=== PATIENT | male | born 1950 | race Caucasian/White ===

== ENCOUNTER 2019-12-03 10:56 | Inpatient (IN) ==
[2019-12-03] MEDS ORDERED: ZOFRAN IV ONE (11:11)
[2019-12-03] MEDS ORDERED: NS 1,000 ML IV ONE ×2 (11:11→13:06)
[2019-12-03] MEDS ORDERED: MORPHINE IV ONE (11:11)
--- NOTE | 2019-12-03 11:16 | PROVIDER DOCUMENTATION ---
HPI-Abdominal Pain/GI Problem - General Chief Complaint: Nausea/Vomiting Stated Complaint: N/V Time Seen by Provider: 12/03/19 11:02 Source: patient Allergies/Adverse Reactions: Patient Allergies Allergy/AdvReac Type Severity Reaction Status Date / Time No Known Allergies Allergy Verified 12/03/19 11:04 Home Medications: Home Medication List Medication Instructions Recorded Confirmed Last Taken Type Doxazosin [Cardura] 4 mg PO DAILY 04/03/13 10/28/13 10/28/13 09:00 History 4 LISINOpril [Prinivil] mg PO DAILY 04/03/13 10/28/13 10/28/13 History 10 Levothyroxine [Synthroid] 25 microgm PO DAILY 04/03/13 10/28/13 10/28/13 08:00 History 25 Metoprolol Succinate E.r. [Toprol 100 mg PO DAILY 04/03/13 10/28/13 10/28/13 09:00 History Xl] 100 PRAVAstatin [Pravachol] 40 mg PO QHS 04/03/13 10/28/13 10/28/13 09:00 History 40 Trazodone [Desyrel] 50 mg PO QHS 04/03/13 10/28/13 10/28/13 09:00 History 50 - History of Present Illness-ABD Nature of Presenting Problems: Patient is a 69 yom who c/o n/v x 2 days. Has had 1 loose stool since onset. Also c/o generalized abdominal pain, more in periumbilical region. Has also had bilateral leg cramping. Denies fever or any other complaints. Review of Systems - Adult - REVIEW OF SYSTEMS - ADULT Constitutional: reports: no symptoms reported. denies: fever Eyes: reports: no symptoms reported Ears, Nose, Mouth & Throat: reports: no symptoms reported Cardiovascular: reports: no symptoms reported Respiratory: reports: no symptoms reported Gastrointestinal: reports: see HPI Genitourinary: reports: no symptoms reported Musculoskeletal: reports: see HPI Integumentary: reports: no symptoms reported Neurological: reports: no symptoms reported Psychiatric: reports: no symptoms reported Endocrine: reports: no symptoms reported Hematologic/Lymphatic: reports: no symptoms reported Allergic/Immunologic: reports: no symptoms reported All Other Systems: Reviewed and Negative Past History - Adult - PAST MEDICAL HISTORY-ADULT Review of Records: reports: Nursing Assessment Review, Medications Reviewed, Social history reviewed & non-contributory. Major Childhood Illnesses: reports: denies history Cardiovascular: reports: HTN Respiratory: reports: denies history Gastrointestinal: reports: denies history Obstetrical/Gynecological: reports: denies history Genitourinary: reports: retention, other (bladder stones) Musculoskeletal: reports: denies history Neurological: reports: denies history Psychiatric: reports: denies history Endocrine/Immune: reports: denies history Other Conditions: reports: denies history - PRIOR SURGERIES/PROCEDURES Surgical/Procedure History: reports: reviewed, not pertinent - FAMILY HISTORY Family History: reviewed, not pertinent - SOCIAL HISTORY Smoking: non-smoker Physical Exam-General - PHYSICAL EXAM-ADULT Initial Vital Signs Reviewed: Yes - CONSTITUTIONAL General Appearance: alert, no apparent distress. negative: lethargic, slow to respond - EYES Eyes: PERRL/EOMI - HEAD, EARS, NOSE, MOUTH & THROAT HENMT: normocephalic/atraumatic - NECK Neck: full range of motion, supple, normal inspection - RESPIRATORY Respiratory: chest non-tender, lungs clear, normal breath sounds, no pleuratic chest pain, no respiratory distress, no accessory muscle use - CARDIOVASCULAR Cardiovascular: normal peripheral pulses, regular rate, rhythm, no gallop, no murmur - GASTROINTESTINAL (ABDOMEN) Abdominal Exam: abnormal bowel sounds (hypoactive), distended, tenderness (diffuse, more in left periumbilical region). negative: guarding - MUSCULOSKELETAL Back Exam: normal inspection Extremity: normal range of motion, non-tender, normal inspection - SKIN Integumentary: normal color, warm/dry. negative: cyanosis, diaphoresis, jaundice, mottled, pallor - NEUROLOGIC Neurologic: grossly normal, no motor/sensory deficits - PSYCHIATRIC Psych/Mental Status: normal mood/affect, normal thought content, normal thought process, oriented x 3 Progress - PLAN OF CARE/RESULTS Progress/Plan/Lab Results: Vital Signs - 8 hr 12/03/19 11:01 Temperature 98.2 F Pulse Rate 128 H Respiratory Rate 18 Blood Pressure 107/73 O2 Sat by Pulse Oximetry 96 Orders Category Date Time Status NEWS Score 2-4:Order NEWS Lactate Series NOW Care 12/03/19 11:04 Active Nursing- Obtain EKG ONCE Care 12/03/19 11:11 Active Saline Loc DIRECTED Care 12/03/19 11:04 Active NPO Diet 12/03/19 11:[address] ABD/PELVIS W/IV CONT ONLY [CT] Stat Exams 12/03/19 11:11 Ordered AMYLASE [CHEM] Stat Lab 12/03/19 11:04 Ordered BLOOD CULTURE [BLDCUL] Stat Lab 12/03/19 11:11 Uncollected CBC WITH ELECTRONIC DIFF [HEME] Stat Lab 12/03/19 11:04 Ordered CK PROFILE [SP CHEM] Stat Lab 12/03/19 11:11 Ordered COMPREHENSIVE METABOLIC PANEL [CHEM] Stat Lab 12/03/19 11:04 Uncollected LACTATE, PLASMA [CHEM] Q3H Lab 12/03/19 11:15 Uncollected LACTATE, PLASMA [CHEM] Q3H Lab 12/03/19 14:15 Uncollected LACTATE, PLASMA [CHEM] Q3H Lab 12/03/19 17:15 Uncollected LIPASE [CHEM] Stat Lab 12/03/19 11:04 Uncollected TROPONIN T HIGH SENSITIVITY Stat Lab 12/03/19 11:11 Uncollected URINALYSIS W/POSS RFLX CULT [URINALYSIS] Stat Lab 12/03/19 11:04 Uncollected Morphine Med 12/03/19 11:11 Once 2 mg IV NOW ONE Ns 1000 ml IV Bolus X1 Med 12/03/19 11:11 Ordered 0.9% Sodium Chloride Inj [Ns] 1,000 ml IV 999 mls/hr Ondansetron [Zofran] Med 12/03/19 11:11 Once 4 mg IV NOW ONE EKG [EKG] Stat Ther 12/03/19 11:11 Ordered Result Diagrams: 12/03/19 11:12 12/03/19 11:12 - REASSESSMENT Reassessment #1 Time Reassessed: 13:00 Status: other (Pt aware of results and in agreement with admission plan and hewitt sfer to DG.) - EKG 1 Time of EKG reading by physician:: 12:11 EKG Read and Signed by:: Jayant Castaneda EKG Interpretation (*Must complete 3 of following elements*): Abnormal Rate: 107 Rhythm: sinus tachycardia with fusion complexes ST Wave: normal - CT/MRI 1 CT Study: Abdomen, Pelvis ([facility] - [address] , [address], [place] [address] [place] [address] Department of Imaging Patient: ISABELA FOYADM Date: 12/03/19#: [id number] : 8ADM Status: REG ERAcct#: [id number] Age/Sex: 69/MRoom/Bed: Loc: P.ED Ordering Physician: Olga Shelton Family Physician: Pankaj Thorpe MD Reason for Procedure: periumbilical pain/tenderness, n/v Signed EXAM: CT ABDOMEN/PELVIS W/O CONTRAST 12/03/2019 HISTORY: periumbilical pain/tenderness, n/v TECHNIQUE: This exam was performed using automated exposure control, adjustment of mA or kV according to patient size, and/or use of iterative reconstruction technique. COMMENT: The current study is compared with the previous examination of 03/22/2013. There are some platelike opacities in both lung bases similar in appearance to the previous study and presumably representing fibrotic scars. There are no apparent gallstones. There is a cyst in the posterior right hepatic lobe which was also present previously although it is slightly larger than it was on the previous exam. There is a fairly large cyst in the upper pole of the left kidney measuring 5.4 cm in diameter. This was also present previously. There is no evidence of nephrolithiasis or hydronephrosis. There is a fair amount of fluid in the gastric fundus. There is dilatation of the small bowel with air-fluid levels which was not the case on the previous study. The appendix is normal in appearance and the distal ileum is normal in caliber. The colon is decompressed. The transitional zone appears to be in the right pelvis. There are some div erticula present in the sigmoid colon without evidence of acute diverticulitis. There is a small amount of free fluid in the pelvis. The urinary bladder is not distended. There is a small fat-containing inguinal hernia on the left. There are degenerative disc changes in the lumbar spine and curvature of the lumbar spine with convexity to the left. IMPRESSION: Small bowel obstruction. No evidence of nephrolithiasis or hydronephrosis. Electronically signed by Andrea Westbrook 12/03/2019 12:37 PM 12/03/19 1237 Interpreting Physician: Andrea Westbrook MD Dictated Date/Time: 12/03/19 1232 cc: Olga Shelton; Pankaj Thorpe MD) - CONSULTS/PCP/HOSPITALIST Notification #1 *Consult/PCP/Hospitalist*: Dr. Figueroa Time Discussed: 12:51 Reason/Comments: SBO Consult Disposition: Admit (to HPS at [facility], Dr. Figueroa requests that he is consulted when pt is at .) #2 Consult: Dr. Leahy Time Discussed: 13:00 Reason/Comments: admission- SBO, renal insufficiency Consult Disposition: Admit (Dr. Leahy to admit to himself, will see pt when he gets to .) Departure - Departure Date of Disposition Decision: 12/03/19 Time of Disposition Decision: 12:40 DIAGNOSIS: SBO (small bowel obstruction), Renal insufficiency, Hernia, Hepatic cyst, Renal cyst, Hyperkalemia Nausea and vomiting Qualifiers: Vomiting type: unspecified Vomiting Intractability: non-intractable Qualified Code(s): R11.2 - Nausea with vomiting, unspecified Abdominal pain Qualifiers: Abdominal location: unspecified location Qualified Code(s): R10.9 - Unspecified abdominal pain Disposition: ADMITTED INPATIENT 09 Certified Medical Emergency: Emergent Condition: Stable Referrals and Follow-Ups: Pankaj Thorpe MD [Primary Care Provider] - - Critical Care Note This patient required my direct & personal management of CC.: No Attestation - Physician/ CARMEN Attestation Patient care was provided by Advanced Practice Provider:: Yes Advanced Practice Provider:: Olga Shelton Advanced Practice Provider documentation review:: The Mid-level provider documentation, treatment plan and medical decision making was reviewed by the physician who agrees with all treatment and medical decision making by the P. The physician spent face to face time with patient:: No Advanced Practice Provider documentation review:: Supervising physician onsite and consulted in the evaluation and care of this patient. The physician did not have a face to face encounter with the patient.
[2019-12-03 11:35] LABS: BASO# 0.02 X1000 (0.0-0.2); BASO% 0.2 % (0.0-0.8); EOS# 0.03 X1000 (0.0-0.7); EOS% 0.3 % (0.0-10.0); HEMOGLOBIN 13.4 g/dL (14.0-18.0); IMM GRAN# 0.03 X1000 (0.0-0.04); IMM GRAN% 0.3 % (0.0-0.5); LYMPH# 1.04 X1000 (1.2-3.4); LYMPH% 9.9 % (20.5-51.1); MCH 25.4 PG (27-31); MCHC 31.9 g/dL (33-37); MCV 79.7 FL (81-99); MONO# 1.45 X1000 (0.11-0.59); MONO% 13.8 % (1.7-9.3); MPV 10.6 FL (7.4-10.4); NEUT# 7.97 X1000 (1.4-6.5); NEUT% 75.5 % (42.2-75.2); PLT 588 X1000 (130-400); RBC 5.27 XMIL (4.7-6.1); RDW 16.2 % (11.5-14.5); WBC 10.54 X1000 (4.8-10.8)
[2019-12-03 11:53] LABS: ALBUMIN 4.5 g/dL (3.5-5.0); CALCIUM 9.4 mg/dL (8.8-10.2); CREATININE 2.9 mg/dL (0.7-1.2); POTASSIUM 5.2 mmol/L (3.5-5.1); TOTAL BILIRUBIN 0.6 mg/dL (0.20-1.00); TOTAL PROTEIN 8.6 g/dL (6.3-8.3)
--- NOTE | 2019-12-03 12:39 | Diag Imaging Result Doc PS360 ---
EXAM: CT ABDOMEN/PELVIS W/O CONTRAST 12/03/2019 HISTORY: periumbilical pain/tenderness, n/v TECHNIQUE: This exam was performed using automated exposure control, adjustment of mA or kV according to patient size, and/or use of iterative reconstruction technique. COMMENT: The current study is compared with the previous examination of 03/22/2013. There are some platelike opacities in both lung bases similar in appearance to the previous study and presumably representing fibrotic scars. There are no apparent gallstones. There is a cyst in the posterior right hepatic lobe which was also present previously although it is slightly larger than it was on the previous exam. There is a fairly large cyst in the upper pole of the left kidney measuring 5.4 cm in diameter. This was also present previously. There is no evidence of nephrolithiasis or hydronephrosis. There is a fair amount of fluid in the gastric fundus. There is dilatation of the small bowel with air-fluid levels which was not the case on the previous study. The appendix is normal in appearance and the distal ileum is normal in caliber. The colon is decompressed. The transitional zone appears to be in the right pelvis. There are some diverticula present in the sigmoid colon without evidence of acute diverticulitis. There is a small amount of free fluid in the pelvis. The urinary bladder is not distended. There is a small fat-containing inguinal hernia on the left. There are degenerative disc changes in the lumbar spine and curvature of the lumbar spine with convexity to the left. IMPRESSION: Small bowel obstruction. No evidence of nephrolithiasis or hydronephrosis. Electronically signed by Andrea Westbrook 12/03/2019 12:37 PM
--- NOTE | 2019-12-03 12:46 | EKG Report ---
Test Performed on : 12/03/2019 12:09:08 PM Test Reason : n/v Blood Pressure : / mmHG Vent. Rate : 107 BPM Atrial Rate : 107 BPM P-R Int : 136 ms QRS Dur : 076 ms QT Int : 320 ms P-R-T Axes : 049 042 075 degrees QTc Int : 427 ms Sinus tachycardia. with fusion complexes Otherwise normal ECG When compared with ECG of 03-APR-2013 08:51, fusion complexes are now present Vent. rate has increased BY 56 BPM Unconfirmed Result
[2019-12-03] MEDS ORDERED: ZOSYN 2.25 GM in NS 50 ML IV ONE (13:01)
--- NOTE | 2019-12-03 14:24 | Diag Imaging Result Doc PS360 ---
EXAM: CHEST/ABD TUBE PLACEMENT 12/03/2019 HISTORY: NG TUBE PLACEMENT TECHNIQUE: AP upper abdomen for NG tube placement COMMENT: The NG tube tip is in the left upper quadrant presumably in the stomach. There are multiple distended small bowel loops. IMPRESSION: NG tube in the stomach. Small bowel obstruction. Electronically signed by Andrea Westbrook 12/03/2019 2:22 PM
[2019-12-03] MEDS ORDERED: SODIUM CHLORIDE 0.9% INJ SCH (15:18)
[2019-12-03] MEDS: ZOFRAN IV PRN (15:37)
[2019-12-03] MEDS: MORPHINE IV PRN (15:50)
[2019-12-03] MEDS: NS 1,000 ML IV SCH ×2 (15:53→23:41)
--- NOTE | 2019-12-03 16:22 | HISTORY AND PHYSICAL ---
PRIMARY CARE PROVIDER: Pankaj Thorpe MD. CHIEF COMPLAINT: Abdominal pain, leg cramps, nausea, vomiting. HISTORY OF PRESENT ILLNESS: Mr. Huan Espinoza is a 69-year-old, male with a medical history of hypertension, hypothyroidism, hyperlipidemia, insomnia, skin cancer, who states that for at least a week, he has been having stomach pain. It is generalized, with leg cramps. Normally, he has one bowel movement a day but he was having a bowel movement after each meal for the past week. Then, over the last two days, he has had some nausea and vomiting. Normal colored emesis. It is not bloody, black, or coffee-grounds. Stools were normal as well, but he came here to seek medical attention as the symptoms would not subside. He also states he has had foul- smelling urine for one month so we will get a urinalysis for that. No other symptoms for that. PAST MEDICAL HISTORY: 1. Skin cancer. 2. Hypertension. 3. Hypothyroidism. 4. Hyperlipidemia. 5. Insomnia. SURGICAL HISTORY: 1. Skin cancer excision. 2. Bladder stone removal. SOCIAL HISTORY: Denies tobacco, alcohol, or illicit drug use. He has 3 adult children that her all daughters. He does not work. He is not . Denies tobacco, alcohol, or illicit drug use. FAMILY HISTORY: Mother had a stroke. Father had diabetes and a heart attack that killed him at age 62. ALLERGIES: No known drug allergies. HOME MEDICATIONS: Not yet reconciled. REVIEW OF SYSTEMS: Fourteen point review of systems are complete. All were negative except for those mentioned above in the HPI. PHYSICAL EXAMINATION: VITAL SIGNS: Temperature 97.8 degrees, heart rate 109, respiratory rate 20, blood pressure 121/80, O2 saturation 97% on room air. He is 5 feet 10 inches tall, 157 pounds, with a BMI of 22.6. GENERAL: Mr. Huan Espinoza is a 69-year-old, male. He is in no acute distress. He is able answer questions appropriately. HEENT: Atraumatic, normocephalic. Pupils equal, round, reactive to light. Extraocular movements intact. Mucous membranes are dry. He has an NG tube in, to low intermittent suction. NECK: Trachea midline. CARDIOVASCULAR: S1, S2. Tachycardic rate and rhythm. No rubs, gallops, or murmurs. No lower extremity edema. There are +2 dorsalis and radial pulses. Negative JVD or carotid bruits. PULMONARY: Clear to auscultate bilateral breath sounds. No accessory muscle use or work of breathing noted. GI: Soft. Tender in all 4 quadrants. Hypoactive bowel sounds. EXTREMITIES: Moves all extremities equally. Full range of motion. NEUROLOGIC: A and O x3. Follows commands. Sensory is intact. SKIN: Warm, dry, intact. LABORATORY DATA: White blood cells 10,000, hemoglobin 13, hematocrit 42, platelet count 588,000. Sodium 137, potassium 5.2, BUN 46, creatinine is 2.9, glucose 205, calcium 9.4. Bilirubin 0.60, AST 24, ALT 21. CK 164, troponin 34. Albumin 4.5, amylase 56, lipase 19, lactate 1.9. IMAGING: Abdominal and pelvic CT, small bowel obstruction. No evidence of nephrolithiasis or hydronephrosis. NG tube placement. NG tube is in the stomach and there is a small bowel obstruction. EKG, sinus tachycardia with a rate of 107 and PVCs, and the QTc is 427. ASSESSMENT AND PLAN: 1. Small-bowel obstruction, now with nasogastric tube and a consult in for Dr. Figueroa. Currently nothing per oral. 2. Intractable nausea and vomiting. Antiemetics as needed. 3. Abdominal pain. Morphine as needed. 4. Gastroesophageal reflux disease. Protonix. 5. Hypertension. He is okay. He is running 120s to 130s. 6. Hypothyroidism. We will need to get his Synthroid switched over to intravenous once the home medications are verified. 7. Hyperlipidemia. Hold the statin. 8. Insomnia. He takes trazodone for that. We may consider something different if he needs it. 9. Hyperglycemia. He denies history of diabetes so we will check a hemoglobin A1c. The blood glucose level is over 200. 10. Acute kidney injury, possibly on chronic kidney disease. BUN and creatinine are 46 and 2.9. Back in 2012, the creatinine was 1.1. He has been complaining of foul smelling urine so we will check a urinalysis and some other urine studies. 11. Mild hyperkalemia. It could be from the kidney disease or possibly acute kidney injury. 12. Deep venous thrombosis prophylaxis. Sequential compression devices. Dictated by LIZZY Williamson for Vishnu Leahy MD cc: LIZZY Williamson MD
[2019-12-03] MEDS: PROTONIX IV SCH (17:56)
[2019-12-03 23:53] LABS: URINE SOURCE CLEAN CATCH
[2019-12-03 23:59] LABS: UR EPITHELIAL CELLS <10 /HPF (<10); URINE BACTERIA 1+ /HPF; URINE RBC 20-40 /HPF (<10); URINE WBC 20-40 /HPF (<10)
[2019-12-04 00:05] LABS: BILIRUBIN URINE SMALL (NEGATIVE); BLOOD URINE MODERATE (NEGATIVE); COLOR YELLOW; GLUCOSE URINE NEGATIVE (NEGATIVE); KETONE URINE TRACE mg/dL (NEGATIVE); LEUKOCYTES URINE LARGE (NEGATIVE); NITRITE URINE NEGATIVE (NEGATIVE); PH URINE 5.5; PROTEIN URINE 30 mg/dL (NEGATIVE); SP GRAVITY URINE 1.023; TURBIDITY URINE HAZY (CLEAR); UROBILINOGEN URINE NORMAL (NORMAL)
[2019-12-04 00:08] LABS: UR CREAT RANDOM 254.6 mg/dL (14-26)
[2019-12-04] MEDS: LOVENOX SUBQ SCH (05:34)
[2019-12-04 06:14] LABS: BASO# 0.01 X1000 (0.0-0.2); BASO% 0.2 % (0.0-0.8); EOS# 0.14 X1000 (0.0-0.7); EOS% 2.6 % (0.0-10.0); HEMOGLOBIN 11.1 g/dL (14.0-18.0); LYMPH# 0.77 X1000 (1.2-3.4); LYMPH% 14.1 % (20.5-51.1); MCH 25.3 PG (27-31); MCHC 30.8 g/dL (33-37); MCV 82.2 FL (81-99); MPV 10.5 FL (7.4-10.4); NEUT# 3.33 X1000 (1.4-6.5); NEUT% 61.1 % (42.2-75.2); PLT 355 X1000 (130-400); RBC 4.38 XMIL (4.7-6.1); WBC 5.45 X1000 (4.8-10.8)
[2019-12-04 06:40] LABS: HEMOGLOBIN A1C 5.6 % (4.8-6.0)
[2019-12-04 07:04] LABS: ALB/GLOB RATIO 1.4; ALBUMIN 3.4 g/dL (3.5-5.0); CALCIUM 7.9 mg/dL (8.8-10.2); CREATININE 2.4 mg/dL (0.7-1.2); POTASSIUM 5.2 mmol/L (3.5-5.1); TOTAL BILIRUBIN 0.35 mg/dL (0.20-1.00); TOTAL PROTEIN 5.9 g/dL (6.3-8.3)
[2019-12-04 07:28] LABS: LYMPHS 15 % (21-51); MONO 11 % (1-9); SEGS 74 % (42-75)
--- NOTE | 2019-12-04 08:24 | Diag Imaging Result Doc PS360 ---
ABDOMEN FLAT/UPRIGHT - 12/04/2019 INDICATION: sbo COMPARISON: 12/03/2019 FINDINGS: There is worsening severe diffuse gaseous distention of numerous small bowel loops. These measure up to 6.2 cm. No evidence of free air. No significant colon or rectal gas. IMPRESSION: Worsening, high-grade small bowel obstruction. Electronically signed by Wero Forman 12/04/2019 8:22 AM
--- NOTE | 2019-12-04 09:03 | CONSULTATION ---
DATE OF CONSULTATION: 12/04/2019 SUBJECTIVE: Mr. Huan Espinoza is a 69-year-old, white male, admitted yesterday through the emergency department with a diagnosis of small-bowel obstruction. We were asked to evaluate him. HOME MEDICATIONS: Lipitor, vitamin B12, Synthroid, Prinivil, Toprol, Zoloft, and Ambien. ALLERGIES: No known drug allergies. PAST MEDICAL HISTORY: Hypertension, kidney stones, hypothyroidism, skin cancer, hyperlipidemia, insomnia. PAST SURGICAL HISTORY: Skin cancer excision, bladder stone removal. SOCIAL HISTORY: Does not smoke. Has 3 adult children. He is retired. He is not . FAMILY HISTORY: Mother had a stroke. Father had diabetes and heart attack. REVIEW OF SYSTEMS: A 14-point review of systems was performed and was essentially negative, except for the history of present illness. He states that he has had nausea and vomiting prior to presenting to the emergency department. PHYSICAL EXAMINATION: General: Mr. Espinoza appears to be a healthy, older, white male in no acute distress. He has an NG tube in place. He is awake, cooperative. Vital Signs: His weight is 157 pounds, he is 5 feet 10 inches. Heart rate 84, blood pressure 137/82, O2 saturation 97%. He is afebrile. HEENT: He has no jaundice. No oral lesions. No cervical or supraclavicular lymphadenopathy. Heart: Regular rate. Lungs: Clear to auscultation and percussion bilaterally. Abdomen: Distended, but not tightly so. It does not appear to be that tender. He has no scars, no evidence of hernia, no costovertebral tenderness. Rectal: Not performed. Extremities: He does have palpable peripheral pulses. No peripheral edema. Neurological: He is alert and oriented x3 and appropriate. IMAGING AND LABORATORY DATA: His white blood cell count is normal. Electrolytes showed that he had elevated BUN and creatinine; that is improved with hydration; BUN is 56, creatinine 2.4. Liver function tests are essentially normal. Abdominal x-ray this morning showed there is gaseous distention of numerous small bowel loops. No evidence of free air. PLAN: He has got an NG tube in. We are hydrating him with IV fluids. Because of no previous abdominal surgery, hopefully he resolves this on his own. If not, he understands that he will need exploratory laparotomy. cc: Kristal Figueroa MD
[2019-12-04] MEDS: NS 1,000 ML IV SCH ×3 (11:28→23:23)
[2019-12-04] MEDS ORDERED: CALCIUM GLUCONATE 4.65 MEQ in NS 50 ML IV ONE (11:31)
[2019-12-04] MEDS ORDERED: D50W SYRINGE IV ONE (11:31)
[2019-12-04] MEDS ORDERED: SODIUM BICARBONATE 8.4% IV PUSH ONE (11:31)
[2019-12-04] MEDS ORDERED: HUMULIN R IV ONE (11:31)
[2019-12-04] MEDS ORDERED: ALBUTEROL NEB INH ONE (11:32)
[2019-12-04] MEDS ORDERED: ALBUTEROL 0.5% INH CONC FOR HYPERKALEMIA INH ONE (13:29)
[2019-12-04 14:26] LABS: UR CREAT RANDOM 167.9 mg/dL (14-26); UR PROT RANDOM 26.5 mg/dL
[2019-12-04] MEDS: PROTONIX IV SCH (14:53)
--- NOTE | 2019-12-04 15:32 | PROGRESS NOTE ---
DATE: 12/04/2019 SUBJECTIVE: The patient is still having a lot of difficulty, pain, and NG output. That being said, he had a bowel movement today, he said he had a large bowel movement, which that is promising. OBJECTIVE: Vital Signs: Blood pressure is 152/85, heart rate 91, respiratory rate 16, temperature 98.4 degrees. Cardiovascular: Regular rate and rhythm. Pulmonary: Bilateral breath sounds, clear to auscultation. GI: He is distended but faint bowel sounds. LABORATORY DATA: His creatinine is 2.4. His BUN is 56. His potassium is 5.2. ISSUES: 1. Small bowel obstruction, although no previous surgical history, which is a bit concerning. He may need a small-bowel follow-through once this is stabilized just to make sure there is no other pathology. Dr. Figueroa is following, appreciate his input. 2. Diabetes. We will continue to monitor. Get his blood sugars under control. 3. Acute kidney injury. I think he has got chronic kidney injury. He is stage 4 and we will continue to monitor closely. 4. Hyperkalemia. We will supplement as necessary. cc: Vishnu Leahy MD
[2019-12-04] MEDS: MORPHINE IV PRN (18:44)
[2019-12-04] MEDS: ZOFRAN IV PRN (18:48)
[2019-12-04] MEDS ORDERED: ATIVAN IV ONE (22:50)
[2019-12-05 06:07] LABS: EOS# 0.09 X1000 (0.0-0.7); HEMATOCRIT 33.5 % (42.0-52.0); HEMOGLOBIN 10.3 g/dL (14.0-18.0); LYMPH% 16.4 % (20.5-51.1); MCH 25.4 PG (27-31); MCHC 30.7 g/dL (33-37); MCV 82.5 FL (81-99); MONO# 0.84 X1000 (0.11-0.59); MONO% 27.5 % (1.7-9.3); MPV 10.2 FL (7.4-10.4); NEUT# 1.62 X1000 (1.4-6.5); NEUT% 53.1 % (42.2-75.2); PLT 303 X1000 (130-400); RBC 4.06 XMIL (4.7-6.1); RDW 16.1 % (11.5-14.5); WBC 3.05 X1000 (4.8-10.8)
[2019-12-05] MEDS: LOVENOX SUBQ SCH (06:55)
--- NOTE | 2019-12-05 08:01 | PROGRESS NOTE ---
DATE: 12/05/2019 SUBJECTIVE: Mr. Huan Espinoza is a 69-year-old white male who is now hospital day three. He was admitted through the emergency department with nausea and vomiting. CT scan suggested a small- bowel obstruction despite not having previous abdominal surgery. His creatinine was also elevated. It was felt secondary to dehydration. A urinalysis showed a large amount of leukocytes, and culture suggested gram-negative nii in his urine. He received IV Zosyn his first day, I do not see that it has been continued, so I restarted it today. His white blood cell count has been normal and actually it is a little bit low today. His hematocrit is 33%. I do not see electrolytes for this morning. OBJECTIVE: His heart rate is 87, blood pressure 138/79, O2 saturation 96%. He is afebrile. Yesterday he did have a bowel movement with some gas, but he is unsure of whether he has had any flatus since then. He still has an NG tube in place. He did have some nausea early this morning requiring IV Zosyn. His abdomen is not tightly distended, and there is no significant tenderness on palpation. DIAGNOSTIC DATA: Flat and upright abdominal film is scheduled for this morning. ASSESSMENT AND PLAN: He is taking ice chips. We will leave his NG tube in for now. We will ask him to be more active in the room. We will restart his IV Zosyn because of his urinalysis. We need to follow his BUN and creatinine. He is on IV fluids at 100 mL an hour. cc: Kristal Figueroa MD
--- NOTE | 2019-12-05 08:15 | Diag Imaging Result Doc PS360 ---
EXAM: ABDOMEN FLAT/UPRIGHT HISTORY: pain TECHNIQUE: Two views COMPARISON: 12/04/2019 FINDINGS: There continue to be air and fluid distended loops of small bowel. These are no more distended than they were. No organomegaly. There is scoliosis with degenerative spine changes. IMPRESSION: Persistent small bowel obstruction Electronically signed by Rich Sibley 12/05/2019 8:12 AM
[2019-12-05] MEDS: ZOSYN 3.375 GM in NS 50 ML IV SCH ×3 (10:00→21:17)
[2019-12-05] MEDS: NS 1,000 ML IV SCH ×2 (10:00→21:16)
[2019-12-05] MEDS: PROTONIX IV SCH (16:07)
[2019-12-05] MEDS ORDERED: AMBIEN PO PRN (22:02)
--- NOTE | 2019-12-05 22:13 | PROGRESS NOTE ---
DATE: 12/05/2019 SUBJECTIVE: Patient notes that he did pass a little bit of gas earlier. Denies any fevers or chills. PHYSICAL EXAM: Vital signs: Temperature 98 degrees, pulse 87, respiratory rate 18, BP 138/79. General: Patient is pleasant. He is in no distress. He does have an NG tube in place. HEENT: Normocephalic. Neck: Supple. Cardiovascular: Regular rate. No murmurs. Chest: Clear, nonlabored. No wheezing. Abdomen: Soft. Decreased but faintly positive bowel sounds, nontender, nondistended. Extremities: Moves all extremities. No edema. Neurologic: No focal changes. Patient is awake alert oriented. ASSESSMENT: 1. Urinary tract infection growing gram-negative rods. He has already been started on antibiotics per Dr. Figueroa. 2. Small bowel obstruction. 3. Diabetes. 4. Acute kidney injury. Creatinine is still elevated at 2.4. 5. Hyperkalemia of 5.2. 6. Hyperglycemia. PLAN: We will continue to follow. Continue NG tube, antibiotics, IV fluids. Further orders as needed. cc: Jonah Salazar MD
[2019-12-06] MEDS: ZOSYN 3.375 GM in NS 50 ML IV SCH ×4 (04:01→20:54)
[2019-12-06] MEDS: NS 1,000 ML IV SCH ×3 (05:42→20:53)
[2019-12-06] MEDS: LOVENOX SUBQ SCH (06:24)
[2019-12-06 06:32] LABS: BASO# 0.05 X1000 (0.0-0.2); BASO% 1.1 % (0.0-0.8); EOS# 0.19 X1000 (0.0-0.7); EOS% 4.2 % (0.0-10.0); HEMATOCRIT 33.1 % (42.0-52.0); LYMPH# 0.57 X1000 (1.2-3.4); LYMPH% 12.6 % (20.5-51.1); MCH 25.6 PG (27-31); MCHC 30.2 g/dL (33-37); MCV 84.9 FL (81-99); MONO# 0.96 X1000 (0.11-0.59); MONO% 21.2 % (1.7-9.3); MPV 10.2 FL (7.4-10.4); NEUT# 2.75 X1000 (1.4-6.5); NEUT% 60.9 % (42.2-75.2); PLT 279 X1000 (130-400); RDW 16.3 % (11.5-14.5); WBC 4.52 X1000 (4.8-10.8)
[2019-12-06 07:20] LABS: CALCIUM 8.1 mg/dL (8.8-10.2); CREATININE 1.2 mg/dL (0.7-1.2); POTASSIUM 4.3 mmol/L (3.5-5.1)
--- NOTE | 2019-12-06 12:11 | PROGRESS NOTE ---
DATE: 12/06/2019 Mr. Espinoza is a 69-year-old white male who is now hospital day 4. He was admitted through our emergency department with nausea and vomiting, and a CT scan suggested a small bowel obstruction. He had not had any previous abdominal surgery. On exam, he had no strangulated hernia. CT scan did not suggest any tumor. We treated him with an NG tube and IV fluids. It appears that he has urinary tract infection. IV Zosyn has been restarted. He has had multiple loose bowel movements over the last 24 hours. His abdomen is not tightly distended. He has no significant tenderness involving his abdomen. I removed his NG tube today. We will let him take ice chips, and advance his diet to clear liquids as we know that he does not have recurrent nausea and vomiting. X-ray yesterday still showed abnormal gas in the small bowel, but it appeared to me that there was also some gas in the colon. His heart rate 62, blood pressure 129/65, and O2 saturation 98%. He is afebrile. He is on IV Zosyn treating a urinary tract infection. His white blood cell count is low, it is 4.5. Hematocrit is 33% and stable. BUN and creatinine are 32 and 1.2. cc: Kristal Figueroa MD
[2019-12-06] MEDS: PROTONIX IV SCH (15:22)
[2019-12-06] MEDS: ZOLOFT PO SCH (18:36)
--- NOTE | 2019-12-06 18:55 | PROGRESS NOTE ---
DATE: 12/06/2019 SUBJECTIVE: The patient notes that he is starting to have gas. He had a bowel movement earlier today. States he is feeling a little bit better. PHYSICAL EXAM: Temperature 98.5, pulse 84, respiratory rate 18, BP 129/59.General: Patient is pleasant. He is in no distress. HEENT: Normocephalic. Neck: Supple. Cardiovascular: Regular rate. Chest: Clear. Abdomen: Soft. Positive, although, decreased bowel sounds. Nontender, nondistended. Extremities: Moves all extremities. ASSESSMENT: 1. Small-bowel obstruction. 2. Escherichia coli urinary tract infection, on antibiotics. 3. Diabetes. 4. Acute kidney injury. 5. Hyperkalemia. PLAN: The patient's labs are currently still pending this morning. He does have Escherichia coli that is pansensitive. He is on antibiotics. He is improving. Hopefully, surgery can clamp and possibly remove his nasogastric today. We will continue to follow. Further orders as needed. cc: Jonah Salazar MD
[2019-12-06] MEDS ORDERED: AMBIEN PO SCH (21:00)
[2019-12-07] MEDS: ZOSYN 3.375 GM in NS 50 ML IV SCH ×4 (00:24→12:05)
[2019-12-07] MEDS: NS 1,000 ML IV SCH ×2 (00:25→08:49)
[2019-12-07] MEDS: LOVENOX SUBQ SCH (05:53)
[2019-12-07] MEDS: ZOLOFT PO SCH ×2 (08:50→12:12)
--- NOTE | 2019-12-07 09:29 | PROGRESS NOTE ---
DATE: 12/07/2019 Mr. Huan Espinoza is a 69-year-old white male, admitted through the emergency department with nausea and vomiting, and a CT scan suggesting small-bowel obstruction. Initially he was treated with an NG tube. I removed his NG tube early yesterday morning. He has tolerated it out, he has tolerated some clear liquids. He is having regular bowel activity. His abdomen is soft without tenderness, and we will advance his diet to a regular diet. He is being treated for urinary tract infection with IV Zosyn. He also admits to having problems with a tooth on the left side upper jaw. I feel that his ileus has resolved. We will give him a regular diet, and discharge home when hospitalists feel that his UTI and tooth are adequately treated. His heart rate is 67, blood pressure 135/67, O2 saturation 99%, he is afebrile. cc: Kristal Figueroa MD
--- NOTE | 2019-12-07 14:38 | DISCHARGE SUMMARY ---
ADMISSION DATE: 12/03/2019 DISCHARGE DATE: DISCHARGE DIAGNOSES: 1. Small-bowel obstruction without really any clear predisposing etiology. 2. Escherichia coli urinary tract infection. 3. Acute kidney injury. CONSULTATIONS: Dr. Figueroa. PROCEDURES: NG placement. HISTORY OF PRESENT ILLNESS: This is a 69-year-old male, presenting with abdominal pain, nausea, vomiting. No previous abdominal surgeries by report. He has had nausea, vomiting. He reports foul-smelling urine and irritation. He had an acute kidney injury as well. Creatinine was up to 2.9. Dr. Figueroa evaluated the patient and felt that this could be managed conservatively. He did have an NG tube placed. His CT scan showed small-bowel obstruction, granted it was without contrast, but in any case, the following day, x-ray looked worse. In any case, he had a toothache apparently that has been having issues. Slowly, he improved. He had a bowel movement though on 12/04/2019 despite an x-ray looking worse. His diet was advanced. NG tube was removed. He was on IV Zosyn. On 12/06/2019, I think Dr. Figueroa went ahead and took the NG out. He had multiple loose bowel movements, so that was normal, so small-bowel obstruction. Removed the NG tube, his diet was advanced, and on 12/07/2019, he was felt stable for discharge. He was on IV insulin. He is afebrile. Abdominal exam is benign. White count is 4.5. BUN and creatinine are down to 32 and 1.2, and we decided to discharge him home. His Escherichia coli UTI is pansensitive. DISCHARGE MEDICATIONS: Ambien 10 at bedtime, Lipitor 80, Prinivil 40 daily, Synthroid 25 daily, Toprol-XL 100 daily, vitamin B12 at 1000, Zoloft 100 daily, Keflex 500 b.i.d. for 7 days, MiraLAX 17 daily. DISCHARGE CONDITION: Stable. TIME SPENT: A 32-minute discharge. FOLLOWUP: Follow up with Dr. Figueroa 1 to 2 weeks. DISCHARGE INSTRUCTIONS: Return for worsening abdominal pain, nausea, vomiting. cc: Vishnu Leahy MD
[2019-12-07 17:42] VITALS: BP 130/61
== END 2019-12-07 15:10 | disposition home or self-care (01) | DRG 389 ==
LOC: P.ED 10:56 → SUATTDRO 13:26 → 4N 13:26
PROVIDERS: ATTEND Internal Medicine